=== PATIENT | female | born 1965 | race Two or more races ===

== ENCOUNTER 2022-02-24 11:15 | Inpatient (IN) | payer OTHER ==
[~2022-02-24] VITALS: Ht 154.9 cm; Wt 63.5 kg
[2022-02-24] MEDS ORDERED: LOSARTAN-HCTZ1 EAC1 PO (14:20)
== END 2022-02-27 10:39 | disposition home or self-care (01) | DRG 735 ==
LOC: O/R 02-26 06:53 → OB/GYN 02-26 10:00 → SURG 02-26 20:17
PROVIDERS: ADMIT Obstetrics & Gynecology Gynecologic Oncology; ATTEND Obstetrics & Gynecology Gynecologic Oncology
PROC: 0UT94ZZ Resection of Uterus, Percutaneous Endoscopic Approach (ICD-10-PCS; 2022-02-26)
PROC: 0UT74ZZ Resection of Bilateral Fallopian Tubes, Percutaneous Endoscopic Approach (ICD-10-PCS; 2022-02-26)
PROC: 0UT24ZZ Resection of Bilateral Ovaries, Percutaneous Endoscopic Approach (ICD-10-PCS; 2022-02-26)
PROC: 07TC4ZZ Resection of Pelvis Lymphatic, Percutaneous Endoscopic Approach (ICD-10-PCS; principal; 2022-02-26 10:00)
DX: C54.1 Malignant neoplasm of endometrium (principal); Z20.822 Contact with and (suspected) exposure to COVID-19